=== PATIENT | male | born 1965 | race American Indian/Alaskan Native ===

== ENCOUNTER 2016-10-09 23:45 | Observation (INO) | payer OTHER ==
[2016-10-09 23:56] VITALS: TEMP 98.1
--- NOTE | 2016-10-10 01:25 | ED PDOC ---
Arrival/HPI <Lisa Khan - Last Filed: 10/10/16 02:32> - General Historian: Patient - History of Present Illness Time/Duration: Other (tonight) Symptom Onset: Gradual Symptom Course: Unchanged Activities at Onset: Other (Punched chinaware) Context: Home <PreetManuel - Last Filed: 10/10/16 05:24> - General Chief Complaint: Alcohol Ingestion Time Seen by Provider: 10/10/16 00:07 - History of Present Illness Narrative History of Present Illness (Text): 10/10/16 01:22 Renny Muñoz is a 51 year old male who presents to the Emergency Room brought in by EMS for alcohol intoxication tonight. Patient admits to drinking alcohol tonight. Patient also sustained a laceration to the right forearm after punching chinaware earlier tonight. Patient denies any suicidal ideation, homicidal ideation, fever, chills, chest pain, cough, abdominal pain, nausea, vomiting, diarrhea, urinary symptoms, back pain, neck pain, headache, dizziness , or any other complaints. (Manuel Oviedo) Past Medical History - Provider Review Nursing Documentation Reviewed: Yes - Psychiatric Hx Substance Use: No (denies) <Manuel Oviedo - Last Filed: 10/10/16 05:24> Family/Social History - Physician Review Nursing Documentation Reviewed: Yes Family/Social History: Unknown Family HX Smoking Status: Never Smoked Hx Alcohol Use: Yes Hx Substance Use: No (denies) <Manuel Oviedo - Last Filed: 10/10/16 05:24> Allergies/Home Meds <Lisa Khan - Last Filed: 10/10/16 02:32> <Manuel Oviedo - Last Filed: 10/10/16 05:24> Allergies/Adverse Reactions: Allergies No Known Allergies Allergy (Verified 10/09/16 23:56) Home Medications: Home Meds Medication Instructions Recorded Confirmed No Known Home Med 10/09/16 10/09/16 Review of Systems - Physician Review All systems were reviewed & negative as marked: Yes - Review of Systems Constitutional: Normal. absent: Fevers Respiratory: Normal. absent: SOB, Cough Cardiovascular: Normal. absent: Chest Pain Gastrointestinal: Normal. absent: Abdominal Pain, Nausea, Vomiting Musculoskeletal: Normal. absent: Back Pain, Neck Pain Skin: Laceration Neurological: Normal. absent: Headache, Dizziness Psychiatric: Other (+alcohol intoxcation) <Manuel Oviedo - Last Filed: 10/10/16 05:24> Physical Exam Vital Signs Reviewed: Yes Temperature: Afebrile Blood Pressure: Normal Pulse: Regular Respiratory Rate: Normal Appearance: Positive for: Well-Appearing, Comfortable Pain Distress: None Mental Status: Positive for: Alert and Oriented X 3 - Systems Exam Head: Present: Atraumatic, Normocephalic Pupils: Present: PERRL Extroacular Muscles: Present: EOMI Conjunctiva: Present: Normal Mouth: Present: Moist Mucous Membranes Neck: Present: Normal Range of Motion Respiratory/Chest: Present: Clear to Auscultation, Good Air Exchange. No: Respiratory Distress, Accessory Muscle Use Cardiovascular: Present: Regular Rate and Rhythm, Normal S1, S2. No: Murmurs Upper Extremity: Present: Normal ROM, NORMAL PULSES, Neurovascularly Intact, Capillary Refill < 2s, Other (3 cm laceration to right forearm, less than 0.5 cm superficial laceration to dorsum of right hand). No: Cyanosis, Edema, Tenderness, Swelling, Erythema, Temperature Abnormalties, Deformity Lower Extremity: Present: Normal Inspection. No: Edema Neurological: Present: GCS=15, CN II-XII Intact, Speech Normal Skin: Present: Warm, Dry, Normal Color. No: Rashes Psychiatric: Present: Alert, Oriented x 3, Intoxicated <Manuel Oviedo - Last Filed: 10/10/16 05:24> Vital Signs Temp Pulse Resp BP Pulse Ox 10/09/16 23:56 98.1 F 93 H 20 152/105 H 99 Medical Decision Making <Lisa Khan - Last Filed: 10/10/16 02:32> <Manuel Oviedo - Last Filed: 10/10/16 05:24> ED Course and Treatment: 10/10/16 01:22 Impression: 51 year old male brought in for alcohol intoxication to right forearm laceration. Differential Diagnosis included but are not limited to: alcohol intoxication vs. laceration Plan: -- Laceration repair -- Reassess and disposition Prior Visits: Notes and results from previous visits were reviewed. Progress Notes: Laceration repair performed by JANEEN Khan. Refer to procedure note. (Manuel Oviedo) - Medication Orders Current Medication Orders: Discontinued Medications Lidocaine HCl (Lidocaine 1% (20ml)) Confirm Administered Dose 20 ml .ROUTE .STK- MED ONE Stop: 10/10/16 02:11 Last Admin: 10/10/16 02:11 Dose: ED OBSERVATION <Lisa Khan - Last Filed: 10/10/16 02:32> Discharge: Yes Date of observation admission: 10/10/16 Time of observation admission: 01:25 <Manuel Oviedo - Last Filed: 10/10/16 05:24> - Observation admission statement Patient is being placed in observation because:: alcohol intoxication (Manuel Oviedo) - Goals of Observation Goals of observation are:: sobriety, observe for signs of withdrawal (Manuel Oviedo) - Progress Note Progress Note: 10/10/16 01:25 Laceration repair performed by PA. Pt resting comfortably, in no acute distress. 10/10/16 03:20 Pt resting comfortably, in no acute distress. 10/10/16 05:24 Pt is awake, alert, and ambulating with steady gait. Pt stable for d/c. ( Manuel Oviedo) Procedure: Wound Repair - Time Performed Time Performed: 02:33 - Procedure Procedure: Wound Repair: right forearm and right hand laceration - Consent Obtained Consent obtained: Verbal - Performed by Performed by: Mid-level Provider - Indications Indication(s):: Laceration - Location Location:: Right, Dorsal (right dorsal hand and right dorsal forearm laceration) Shape:: Linear Dimensions Length cm: 3cm linear laceration to right forearm, 0.5cm linear laceration to hand Depth:: Epidermis - Anesthetic Technique Local/Regional Anesthetic:: Lidocaine 1% (3cc total) - Debris Debris:: None - Irrigated Irrigated with ml of normal saline: copious amounts of NS using high pressure irrigation - Complexity Complexity:: Simple (one layer) - Wound repair method Sutures:: # (TOTAL: 7 sutures; right hand; ONE 4.0 nylon interrupted suture. right forearm; SIX 4.0 interrupted sutures. ) - Complications Complications: none - Patient tolerated procedure Patient Tolerated Procedure:: Well <Lisa Khan - Last Filed: 10/10/16 02:32> <Lisa Khan - Last Filed: 10/10/16 02:32> - Scribe Statement The provider has reviewed the documentation as recorded by the Scribe <Manuel Oviedo - Last Filed: 10/10/16 05:24> - Scribe Statement Ashley Eddy (Manuel Oviedo) Provider Attestation: All medical record entries made by the Scribe were at my direction and personally dictated by me. I have reviewed the chart and agree that the record accurately reflects my personal performance of the history, physical exam, medical decision making, and the department course for this patient. I have also personally directed, reviewed, and agree with the discharge instructions and disposition. (Manuel Oviedo) Disposition/Present on Arrival <Lisa Khan - Last Filed: 10/10/16 02:32> - Present on Arrival Any Indicators Present on Arrival: No History of DVT/PE: No History of Uncontrolled Diabetes: No Urinary Catheter: No History of Decub. Ulcer: No History Surgical Site Infection Following: None - Disposition Have Diagnosis and Disposition been Completed?: Yes Disposition Time: 05:23 Patient Plan: Discharge <Maunel Oviedo - Last Filed: 10/10/16 05:24> - Disposition Diagnosis: Alcohol intoxication, Arm laceration Disposition: HOME/ ROUTINE Condition: STABLE
[2016-10-10] MEDS ORDERED: Lidocaine 1% Inj (20ml) ONE (02:10)
[2016-10-10 05:34] VITALS: O2SAT 97
[2016-10-10 05:38] VITALS: BP 147/71; PULSE 85; RESP 17
== END 2016-10-10 05:20 | disposition home or self-care (01) ==
LOC: ED 23:45 → EROBSV 10-10 01:25
PROVIDERS: ADMIT Emergency Medicine; ATTEND Emergency Medicine
DX: S61.411A Laceration without foreign body of right hand, initial encounter (principal); S51.811A Laceration without foreign body of right forearm, initial encounter; W45.8XXA Other foreign body or object entering through skin, initial encounter; Y93.89 Activity, other specified; Y92.89 Other specified places as the place of occurrence of the external cause; F10.129 Alcohol abuse with intoxication, unspecified
CPT/HCPCS: 12002; 99283; G0378